=== PATIENT | male | born 1985 | race Asian ===

== ENCOUNTER 2017-10-13 20:20 | Emergency (ER) | payer OTHER, BC ==
[~2017-10-13] VITALS: Ht 185.4 cm; Wt 106.4 kg
[2017-10-14 00:02] VITALS: BP 120/78
== END 2017-10-14 00:02 | disposition home or self-care (01) ==
LOC: EME 20:20
DX: S80.01XA Contusion of right knee, initial encounter (principal); V43.52XA Car driver injured in collision with other type car in traffic accident, initial encounter; Y92.410 Unspecified street and highway as the place of occurrence of the external cause
CPT/HCPCS: 73564; 99281; 99283